=== PATIENT | female | born 1985 | race Caucasian/White ===

== ENCOUNTER 2017-01-12 16:12 | Emergency (ER) | payer OTHER | END 2017-01-12 19:13 | disposition home or self-care (01) | LOC: ER 16:12 | DX: K59.00 Constipation, unspecified (principal); R33.9 Retention of urine, unspecified; Z88.8 Allergy status to other drugs, medicaments and biological substances; Z90.710 Acquired absence of both cervix and uterus; Z90.79 Acquired absence of other genital organ(s) | CPT/HCPCS: 51702; 96360; 96361 ==